=== PATIENT | female | born 1985 | race Caucasian/White ===

== ENCOUNTER 2020-10-07 14:18 | Inpatient (IN) | payer MEDICAID, SELFPAY ==
[2020-10-07 14:19] VITALS: BP 112/69; PULSE 86; RESP 17; TEMP 35.6; O2SAT 100; BMI 19.4
--- NOTE | 2020-10-07 14:36 | ED.VIS.GEN ---
History of Present Illness Chief Complaint: Substance Abuse Informant: Patient Onset: - - She began drinking at the age of 14. Context: - - Not applicable Timing: Continuous Quality: 1 pint to 3 pints of vodka per day Location: Left upper quadrant abdominal pain Current Severity: Mild Maximum Severity: Moderate Worsened by: Alcohol consumption Relieved by: Nothing Associated Symptoms: Nausea and vomiting and black stool Narrative: Patient is a 34-year-old female status post bilateral tubal ligation who presents with left upper quadrant abdominal pain with nausea and vomiting and black stool. The nausea vomiting started a couple days ago. The black stools been present for 1 to 2 days. She denies history of peptic ulcer disease. She denies history of varices. She does have history of pancreatitis. Last bout was 2 to 3 months ago. She states she is never been in detox. She denies fever, chills night sweats. She denies upper respiratory symptoms. She denies exposure to Covid. Denies loss of taste or smell. She denies chest pain, shortness of breath. She does have a cough which she attributes to smoking. She denies dysuria, frequency, urgency or hematuria. She denies bruising easily. There is no history of recent trauma. Prior similar symptoms: Yes - Left upper quadrant bowel pain due to pancreatitis Recent Illness/Hospitalization: No - Past Medical History (1) History of alcoholism Status: Acute (2) History of pancreatitis Status: Acute Past Medical History - Allergies and Home Meds Allergies/Adverse Reactions: Allergies hydrocodone Adverse Reaction (Verified 10/07/20 14:19) Nausea Primary Care Physician: Care Physician,No Primary [Primary Care Provider] - Prior records reviewed: No - No records available at [facility] Surgical History: - - Bilateral tubal ligation Lives: Alone Smoking Status: Current every day smoker Alcohol: Heavy Drugs: None Review of Systems General: Denies: Chills, Fever, Malaise, Subjective, Sweats Eyes: Denies: Visual changes - bilaterally, Blurred Vision - bilaterally, Diplopia ENT: Denies: Rhinorrhea, Sore throat Cardiovascular: Denies: Chest pain, Palpitations Respiratory: Denies: Dyspnea, Cough, Dyspnea on exertion Gastrointestinal: Reports: Abdominal pain, Nausea, Vomiting, Diarrhea, Melena. Denies: Constipation, Hematochezia Genitourinary: Denies: Dysuria, Hematuria, Frequency Musculoskeletal: Denies: Myalgias, Arthralgias, Neck pain, Back pain, Extremity Pain Skin: Denies: Rash, Wounds Neurological: Denies: Headache, Weakness, Numbness Psych: Denies: Depression Endocrine: Denies: Polyuria, Polydipsia Hematologic: Denies: Easy bruising Physical Exam Vital Signs/Narrative: Vital Signs Temp Pulse Resp BP Pulse Ox 10/07/20 14:19 96.0 F L 86 17 112/69 100 Inital Vital Signs reviewed: Yes General: Well nourished, Well developed, No Acute Distress Head: Normocephalic, Atraumatic Eyes: Perrl, EOMI. Negative for: Pale conjunctiva, Scleral icterus ENT: No rhinorrhea, TM's clear Neck: Supple, Nontender, No lymphadenopathy, No JVD Cardiovascular: Regular rate, Regular rhythm, No murmurs, Normal S1, Normal S2 Respiratory: No distress, CTA bilaterally, Chest nontender Abdomen: Soft, Nondistended, No masses, Tender - Upper quadrant, Hypoactive bowel sounds. Negative for: Nontender, Normal bowel sounds, Hepatomegaly, Splenomegaly, Mass, Pulsatile mass, Ventral hernia, Umbilical hernia Rectal: - - No fissures or fistulas noted. There is no obvious hemorrhoids. Stool was brown Back: Nontender, Normal Inspection Extremities: Nontender, No edema Skin: Normal color, No rash, No Trauma. Negative for: Cyanosis, Diaphoresis, Jaundice Neurological: Alert, Oriented x3, Cranial nerves II-XII grossly intact, Normal Strength, Normal Sensation Psychological: Normal affect Diagnostic/Tx/Re-eval 10/07/20 14:30 Stool Stool Occult Blood (CRYSTAL) - Final Laboratory Results 10/07/20 10/07/20 10/07/20 14:45 14:45 14:45 WBC 13.5 H RBC 3.44 L Hgb 12.9 Hct 37.3 MCV 108.4 H MCH 37.5 H MCHC 34.6 RDW Std Deviation 62.0 H RDW Coeff of Jevon 15.6 H Plt Count 319 MPV 11.0 Immature Gran % (Auto) 0.800 Neut % (Auto) 74.7 H Lymph % (Auto) 13.2 L [place] % (Auto) 8.4 Eos % (Auto) 1.6 Baso % (Auto) 1.3 H Absolute Neuts (auto) 10.1 H Absolute Lymphs (auto) 1.78 Nucleated RBC % 0 PT 13.8 INR 1.1 Sodium 139 Potassium 2.6 L* Chloride 98 Carbon Dioxide 33.0 H Anion Gap 8 BUN 4 L Creatinine 0.50 L Estim Creat Clear Calc 121.70 Est GFR (MDRD) Af Amer 182 Est GFR (MDRD) Non-Af 150 BUN/Creatinine Ratio 8.0 L Glucose 90 Calcium 8.4 L Total Bilirubin 1.70 H AST 310 H ALT 92 H Alkaline Phosphatase 504 H Total Protein 7.4 Albumin 2.9 L Globulin 4.5 H Albumin/Globulin Ratio 0.6 L Lipase 112 Ethyl Alcohol 10/07/20 14:45 WBC RBC Hgb Hct MCV MCH MCHC RDW Std Deviation RDW Coeff of Jevon Plt Count MPV Immature Gran % (Auto) Neut % (Auto) Lymph % (Auto) [place] % (Auto) Eos % (Auto) Baso % (Auto) Absolute Neuts (auto) Absolute Lymphs (auto) Nucleated RBC % PT INR Sodium Potassium Chloride Carbon Dioxide Anion Gap BUN Creatinine Estim Creat Clear Calc Est GFR (MDRD) Af Amer Est GFR (MDRD) Non-Af BUN/Creatinine Ratio Glucose Calcium Total Bilirubin AST ALT Alkaline Phosphatase Total Protein Albumin Globulin Albumin/Globulin Ratio Lipase Ethyl Alcohol 191.0 There is no evidence of pancreatitis. Patient does have hypokalemia. She received 40 mEq of potassium p.o. Alcohol is elevated at 191. Total bili is elevated 1.7 and transaminases are elevated suspect due to alcoholism. INR is normal; therefore, her liver function is normal. Patient has macrocytic indices need to evaluate for folate deficiency and B12 deficiency as an inpatient. - Medical Decision Making Work-up was undertaken for medical clearance for detox and because a left upper quadrant abdominal pain black stool rule out pancreatitis and GI bleed. Appropriate blood work has been ordered. ED Disposition - Plan for ED Patient: Disposition: Acute Care Hospital [facility] Diagnosis: Alcohol abuse with intoxication, Hypokalemia, Left upper quadrant abdominal pain Referrals: Care Physician,No Primary [Primary Care Provider] -
--- NOTE | 2020-10-07 15:09 | CM.ED ---
SOCIAL WORK Reason for Consult: Substance Abuse/Patient requesting detox from alcohol Met with patient in room. Introduced role and reason for referral. Patient states was sent in by [facility] and has been battling alcohol addition for many years. Patient reports last drink was 1 hour prior to arrival. Patient states plan to discharge to [facility] after detox. Patient voiced some concerns with not having phone as significant other is in assisted and only is allowed 1 hour of phone time and unsure when significant other will call. Support and education provided. Nurse to review [facility] agreement with patient prior to admission. Plan: Admit to [facility] Judith Guzman, LAWN MOWER SHARPENER, REVIEW TRAINER
[2020-10-07 15:17] LABS: Absolute Lymphocyte Count 1.78 X10^3/uL (0.83-4.51); Absolute Neutrophil Count 10.1 X10^3/uL (2.0-7.7); Basophil# 0.18 X10^3/uL; Basophil% 1.3 % (0-1); Eosinophil# 0.21 X10^3/uL; Eosinophils% 1.6 % (0-5); Hematocrit 37.3 % (37-47); Hemoglobin 12.9 g/dL (12.0-15.0); Lymphocyte # 1.78 X10^3/ul (4.0); Lymphocyte % 13.2 % (19-41); Mean Corp Hgb Conc 34.6 g/dL (32-36); Mean Corpuscular Hgb 37.5 pg (27.0-32.0); Mean Corpuscular Volume 108.4 fL (81-99); Monocyte# 1.13 X10^3/uL; Monocyte% 8.4 % (0-10); NRBC Flagged by Analyzer 0 % (0-5); Neutrophil # 10.05 X10^3/uL (2.7-7.7); Neutrophil % 74.7 % (47-70); Platelet Count 319 K/mm3 (150-450); RBC Distribution Width CV 15.6 % (11.6-14.6); Red Blood Count 3.44 M/mm3 (4.2-5.4); White Blood Count 13.5 K/mm3 (4.4-11.0)
[2020-10-07 15:24] LABS: International Normalized Ratio 1.1; Prothrombin Time (Protime)PT. 13.8 SECONDS (11.7-14.9)
[2020-10-07 15:32] LABS: ALB/GLOB Ratio 0.6 RATIO (0.9-2.4); AST(SGOT) 310 U/L (15-37); Alanine Aminotransfer ALT/SGPT 92 U/L (13-56); Albumin, Serum 2.9 g/dL (3.2-5.0); Alkaline Phosphatase 504 U/L (45-117); Anion Gap 8 (5-15); BUN 4 mg/dL (7-18); Calcium,Total 8.4 mg/dL (8.5-10.1); Chloride 98 mmol/L (98-107); EST Glomerular Filtration Rate 150 mL/min (>60); Est Glom Filt Rate - Afr Amer 182 mL/min (>60); Globulin 4.5 g/dL (2.2-4.2); Glucose 90 mg/dL (74-106); Lipase 112 U/L (73-393); Potassium 2.6 mmol/L (3.5-5.1); Protein, Total 7.4 g/dL (6.4-8.2); Sodium Level 139 mmol/L (136-145)
--- NOTE | 2020-10-07 16:26 | NURSING ---
DR WEISS FOR DR CRAMER
--- NOTE | 2020-10-07 16:48 | PCM.HP.STD ---
<Hank Coronel - Last Filed: 10/07/20 16:48> Problem List (1) Alcohol withdrawal Status: Acute (2) Chronic pancreatitis Status: Chronic (3) Nicotine abuse Status: Chronic (4) Hepatitis Status: Chronic (5) History of alcoholism Status: Chronic History of Present Illness Date of Admission: 10/07/20 Chief Complaint: alcohol withdrawal The patient is a 34 year old F with pmhx of alcoholism, chronic pancreatitis,seizure, nicotine abuse, hx hepatitis unclear subtype, who presented to the ER with c/o alcohol withdrawal requesting assistance with withdrawal. She has been drinking for approximately 20 years and states she has never been through detox. She states she has been admitted for pancreatitis at [facility] multiple times but has never been detoxed while there. She states she has had seizures, most recently 6 months prior, and she does not take any seizure medications. She drinks approximately 1-3 pints of 80 proof vodka every day. She smokes 3 hits of marijuana daily - she states this is done to help her appetite and pancreatitis. She smokes cigarettes 1/2 ppd. She denies other drug use. She currently complains of tremor. She has mild upper abdominal discomfort. She last drank 1-2 hours prior to arrival. She was also noted to have had black stools recently however no anemia and hemoccult stool is negative. 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 Lives: Alone Smoking Status: Current every day smoker Tobacco Use: Cigarettes Alcohol: Heavy Drugs: Marijuana - *Family History Maternal History Items: - - denies stroke, diabetes, heart disease, cancer Paternal History Items: - - denies stroke, diabetes, heart disease, cancer Review of Systems Constitutional: Denies: Chills, Fever, Weight Change HEENT: Denies: Head Aches, Sinus Congestion, Sinus Drainage Cardiovascular: Denies: Chest Pain, Palpitations Respiratory: Denies: Cough, Shortness of breath at rest, Sputum production Gastrointestinal: Denies: Abdominal Pain, Nausea, Vomiting Genitourinary: Denies: Dysuria Musculoskeletal: Denies: Joint Pain, Joint Tenderness Skin: Denies: Rash, Wounds Neurological: Reports: Tremor. Denies: Focal weakness, Numbness, Tingling Psychiatric: Denies: Anxiety, Depression, Homicidal Ideations, Suicidal Ideations Hematologic/ Lymphatic: Denies: Easy Bruising, Easy Bleeding VTE Information - Inpt Only VTE Present on Admission: No VTE Mechan Device Prophylaxis: None VTE Pharm Prophylaxis ordered?: No Reason prophylaxis not ordered:: Procedure Not Indicated Patient Problems: Active and Suspected Problems History of pancreatitis (Acute) Hypokalemia (Acute) Left upper quadrant abdominal pain (Acute) Alcohol withdrawal (Acute) - Physical Exam Vitals/I&O's: Vital Signs Temp Pulse Resp BP Pulse Ox 96.0 F L 86 17 112/69 100 10/07/20 14:19 10/07/20 14:19 10/07/20 14:19 10/07/20 14:19 10/07/20 14:19 Oxygen Delivery Method Room Air Weight: 106 lb 3.2 oz Body Mass Index (BMI) 19.4 General: Alert, Oriented x3, Cooperative HEENT: Atraumatic, PERRLA, EOMI, Normocephalic Neck: Supple, No JVD, Negative Carotid Bruits Lungs: Clear to auscultation, Normal air movement Cardiovascular: Regular rate, No murmurs Abdomen: Bowel Sounds Present, Soft, Non Tender Extremities: No edema, Capillary Refill Less than 3 Seconds Skin: No rashes, No breakdown Musculoskeletal: No Tenderness to Palpation of Joints or Extremities Neurological: Cranial nerves II-XII grossly intact, - - no asterixis, mild fine upper ext tremor BL Psych/Mental Status: Normal Affect, Appropriate Microbiology Past 72 Hours 10/07/20 14:30 Stool Stool Occult Blood (CRYSTAL) - Final Laboratory Results 10/07/20 14:45: WBC 13.5 H, RBC 3.44 L, Hgb 12.9, Hct 37.3, MCV 108.4 H, MCH 37.5 H, MCHC 34.6, RDW Std Deviation 62.0 H, RDW Coeff of Jevon 15.6 H, Plt Count 319, MPV 11.0, Immature Gran % (Auto) 0.800, Neut % (Auto) 74.7 H, Lymph % (Auto) 13.2 L, [place] % (Auto) 8.4, Eos % (Auto) 1.6, Baso % (Auto) 1.3 H, Absolute Neuts (auto) 10.1 H, Absolute Lymphs (auto) 1.78, Nucleated RBC % 0 10/07/20 14:45: PT 13.8, INR 1.1 10/07/20 14:45: Sodium 139, Potassium 2.6 L*, Chloride 98, Carbon Dioxide 33.0 H, Anion Gap 8, BUN 4 L, Creatinine 0.50 L, Estim Creat Clear Calc 121.70, Est GFR (MDRD) Af Amer 182, Est GFR (MDRD) Non-Af 150, BUN/Creatinine Ratio 8.0 L, Glucose 90, Calcium 8.4 L, Total Bilirubin 1.70 H, AST 310 H, ALT 92 H, Alkaline Phosphatase 504 H, Total Protein 7.4, Albumin 2.9 L, Globulin 4.5 H, Albumin/Globulin Ratio 0.6 L, Lipase 112 10/07/20 14:45: Ethyl Alcohol 191.0 Assessment/Plan All Active Problems History of pancreatitis (Acute) Hypokalemia (Acute) Left upper quadrant abdominal pain (Acute) Alcohol withdrawal (Acute) 1. Alcoholism with acute withdrawal - heavy drinking hx. hx withdrawal seizures. initiate phenobarbital taper + Ativan PRN. Hypokalemic, replete, check mag / phos. start folate/thiamine/multivitamin. EtOH level is 191. -heavy drinker, 1-3 pints 80 proof vodka daily -pt denies ever going through detox 2. Abnormal LFTs - hx unclear hepatitis - repeat CMP in AM. suspect alcoholic. Repeat in AM. Pt needs referral to GI 3. Chronic pancreatitis - mild upper abdominal discomfort. Pt needs referral to GI. Lipase is negative. 4. Nicotine abuse - 1/2 ppd smoker. Patch, 5. Marijuana abuse - 1-3 hits daily. unclear quantity. 6. Pt reported black stools - Hgb is normal and stool occult is negative. DVT ppx: early ambulation DC planning: pt connected to [facility] program. This patient was seen by Hank Coronel PA-C under the supervision of Dr. Bustillo. <Ayde Bustillo - Last Filed: 10/07/20 17:43> History of Present Illness The patient is a 34 year old F [] Past Medical History Allergies hydrocodone Adverse Reaction (Verified 10/07/20 14:19) Nausea - Physical Exam Vitals/I&O's: Vital Signs Temp Pulse Resp BP Pulse Ox 96.0 F L 86 16 112/69 100 10/07/20 14:19 10/07/20 14:19 10/07/20 16:50 10/07/20 14:19 10/07/20 14:19 Oxygen Delivery Method Room Air Weight: 48.172 kg Body Mass Index (BMI) 19.4 Microbiology Past 72 Hours 10/07/20 14:30 Stool Stool Occult Blood (CRYSTAL) - Final Laboratory Results 10/07/20 14:45: WBC 13.5 H, RBC 3.44 L, Hgb 12.9, Hct 37.3, MCV 108.4 H, MCH 37.5 H, MCHC 34.6, RDW Std Deviation 62.0 H, RDW Coeff of Jevon 15.6 H, Plt Count 319, MPV 11.0, Immature Gran % (Auto) 0.800, Neut % (Auto) 74.7 H, Lymph % (Auto) 13.2 L, [place] % (Auto) 8.4, Eos % (Auto) 1.6, Baso % (Auto) 1.3 H, Absolute Neuts (auto) 10.1 H, Absolute Lymphs (auto) 1.78, Nucleated RBC % 0 10/07/20 14:45: PT 13.8, INR 1.1 10/07/20 14:45: Sodium 139, Potassium 2.6 L*, Chloride 98, Carbon Dioxide 33.0 H, Anion Gap 8, BUN 4 L, Creatinine 0.50 L, Estim Creat Clear Calc 121.70, Est GFR (MDRD) Af Amer 182, Est GFR (MDRD) Non-Af 150, BUN/Creatinine Ratio 8.0 L, Glucose 90, Calcium 8.4 L, Total Bilirubin 1.70 H, AST 310 H, ALT 92 H, Alkaline Phosphatase 504 H, Total Protein 7.4, Albumin 2.9 L, Globulin 4.5 H, Albumin/Globulin Ratio 0.6 L, Lipase 112 10/07/20 14:45: Ethyl Alcohol 191.0 10/07/20 17:00: Urine Opiates Screen Pending, Urine Methadone Screen Pending, Ur Barbiturates Screen Pending, Ur Phencyclidine Scrn Pending, Ur Amphetamines Screen Pending, U Methamphetamin-MDMA Pending, U Benzodiazepines Scrn Pending, Urine Cocaine Screen Pending, U Cannabinoids Screen Pending, Ur Drug Screen Comment Assessment/Plan This patient was seen in conjunction with CARYL Albarran. I have independently interviewed and examined the patient and reviewed pertinent historical, laboratory, and other data. Please refer to CARYL Albarran note for his patient's presentation, findings, and recommendations. I have reviewed and his note and concur with his documentation 34-year-old with past medical history of chronic alcoholism, seizure disorder, unknown etiology, not on medication, chronic pancreatitis, nicotine dependence who comes in requesting for medical stabilization for alcohol withdrawal. Patient lanes of feeling hot and cold, he has some tremors but denies any nausea vomiting. She drinks 1 to 3 pints of vodka every day, last had a drink about an hour prior to coming to the hospital. She also uses marijuana. She also complains of abdominal discomfort, mostly in the epigastric region and believes is related to her chronic pancreatitis. Denied any fever or chills or any sick contact Vitals in the ED was stable. Her admitting blood work showed RBC count of 13.5, hemoglobin 12.9, platelet count 319, INR 1.1, sodium 139, potassium 2.6, chloride 98, bicarbonate 33, BUN 4, creatinine 0.50, AST 13, ALT 92, ALP 504, WBC 1.70. No previous LFTs to compare. Urine tox was pending. Serum alcohol level was 191 Physical Exam: Gen: Looks in some discomfort, not pale, not jaundiced, tattoos all over upper extremities CVS:HS I +II, regular, no murmurs RESP: CTA GI: BS present and normal, soft, nontender, no palpable organs EXT:No edema ASSESSMENT: 1. Acute alcohol withdrawal 2. Hypokalemia 3. Elevated liver function tests likely secondary to alcohol liver disease, Jewel discriminant function is 11 4. Nicotine dependence 5. Polysubstance use Plan: Check magnesium level Continue on phenobarb withdrawal protocol Nicotine replacement Check hepatitis profile Repeat blood work in am Inpatient E&M: [id number] Init Hosp L3
[2020-10-07 16:50] VITALS: RESP 16
--- NOTE | 2020-10-07 16:54 | NURSING ---
MED SURG ACUTE ALCOHOL WITHDRAWAL PAINTSIL
--- NOTE | 2020-10-07 17:45 | CM.ED ---
SOCIAL WORK Call to [facility] Treatment Navigator, Wilbert to update on patient's admission to [facility]. Wilbert reports will be in tomorrow to complete assessment. Judith Guzman, ROLLER SETTER, EDUCATION PROFESSIONAL
[2020-10-07 17:46] VITALS: BP 112/69; PULSE 86; RESP 17; TEMP 35.6; O2SAT 100
[2020-10-07 18:00] LABS: Amphetamine Urine VISTA NEGATIVE (<1000 ng/mL); Barbiturate Urine VISTA NEGATIVE (< 200 ng/mL); Benzodiazepine Urine VISTA NEGATIVE (< 200 ng/mL); Cocaine Urine VISTA NEGATIVE (< 300 ng/mL); Ecstacy Urine VISTA NEGATIVE (< 500 ng/mL); Methadone Urine VISTA NEGATIVE (< 300 ng/mL); PCP Urine VISTA NEGATIVE (< 25 ng/mL); THC Urine VISTA POSITIVE (< 50 ng/mL); Vista UDS pH Range 6
[2020-10-07 18:24] VITALS: BMI 18.7
--- NOTE | 2020-10-07 18:39 | US_ITS ---
HISTORY: ELEVATED LIVER ENZYMES TECHNIQUE: Ortega scale and color doppler imaging was performed of the pancreas, liver, and gallbladder. COMPARISON: None FINDINGS: # of images incl. paperwork: 132 The liver is coarse in echotexture borderline-enlarged just under 18 cm suggestive of hepatic steatosis and hepatomegaly No gallstones, gallbladder wall thickening or biliary dilatation. Gallbladder wall measures 3 mm. Common bile duct measures 4 mm. No tenderness upon insonation the gallbladder. Within the pancreatic head there is an area that is slightly echogenic measuring 5 x 7 x 9 mm. Although it is echogenic it is similar to that of fat, and does not demonstrate shadowing. . Right kidney is normal in size and appearance. Visualized abdominal aorta has normal caliber. IVC is patent. Hepatopedal flow is present within the central portal vein. US/Abdomen Limited IMPRESSION: 5 x 7 x 9 mm echogenic non-shadowing focus within the head of the pancreas. I believe this likely represents fat been volume averaged with regular, normal pancreatic parenchyma. Possibility of an echogenic nodule within the pancreatic head is within the differential. Recommend comparison to any previous cross-sectional imaging. If no previous imaging consider multiphase CT versus MRI of the pancreas for further evaluation. Hepatic steatosis and borderline hepatomegaly.. at 0037 Reported and signed by: Min Watts MD Electronically Signed: Min Watts MD at 0:36 EST Tel , Service support ,
[2020-10-07] MEDS: 0.9% Normal Saline 1,000 ML 75 ML IV (18:48)
[2020-10-07] MEDS: Famotidine 20 MG Tablet PO (18:52)
[2020-10-07] MEDS: Phenobarbital 32.4 MG Tablet 64.8 MG PO ×2 (18:52→22:57)
[2020-10-07] MEDS: LORazepam 1 MG Tablet 2 MG PO (18:52)
[2020-10-07] MEDS: Ondansetron 8 MG Tablet PO (18:53)
[2020-10-07 18:54] LABS: Magnesium 1.6 mg/dL (1.6-2.6)
[2020-10-07 20:00] VITALS: BP 113/79; PULSE 92; RESP 18; TEMP 37.2; O2SAT 100
[2020-10-07 20:31] VITALS: RESP 18; O2SAT 98
[2020-10-07 20:56] LABS: Bilirubin, Direct 1.37 mg/dL (0.00-0.30)
[2020-10-07 22:55] VITALS: BP 107/71; PULSE 90; RESP 16; TEMP 37.2; O2SAT 99
[2020-10-07] MEDS: traZODone 100 MG Tablet PO (22:57)
[2020-10-08] VITALS (8 sets, daily range): BP systolic 95–126; BP diastolic 55–87; PULSE 76–106; RESP 14–18; TEMP 36.7–37.1; O2SAT 95–99; BMI 18.7
[2020-10-08 06:42] LABS: Absolute Lymphocyte Count 1.81 X10^3/uL (0.83-4.51); Absolute Neutrophil Count 6.3 X10^3/uL (2.0-7.7); Basophil% 1.1 % (0-1); Eosinophil# 0.29 X10^3/uL; Eosinophils% 3.1 % (0-5); Hematocrit 30.5 % (37-47); Hemoglobin 10.3 g/dL (12.0-15.0); Lymphocyte # 1.81 X10^3/ul (4.0); Lymphocyte % 19.4 % (19-41); Mean Corp Hgb Conc 33.8 g/dL (32-36); Mean Corpuscular Hgb 37.5 pg (27.0-32.0); Mean Corpuscular Volume 110.9 fL (81-99); Mean Platelet Vol. 10.9 fl (6.2-12.0); Monocyte# 0.74 X10^3/uL; Monocyte% 7.9 % (0-10); NRBC Flagged by Analyzer 0 % (0-5); Neutrophil # 6.34 X10^3/uL (2.7-7.7); Neutrophil % 67.8 % (47-70); Platelet Count 252 K/mm3 (150-450); RBC Distribution Width CV 15.9 % (11.6-14.6); RBC Distribution Width SD 64.6 fl (35.1-43.9); Red Blood Count 2.75 M/mm3 (4.2-5.4); White Blood Count 9.4 K/mm3 (4.4-11.0)
[2020-10-08 07:09] LABS: ALB/GLOB Ratio 0.6 RATIO (0.9-2.4); AST(SGOT) 218 U/L (15-37); Alanine Aminotransfer ALT/SGPT 64 U/L (13-56); Albumin, Serum 2.1 g/dL (3.2-5.0); Alkaline Phosphatase 376 U/L (45-117); Anion Gap 6 (5-15); BUN 4 mg/dL (7-18); BUN/Creat Ratio 7.8 RATIO (10-20); Calcium,Total 7.3 mg/dL (8.5-10.1); Chloride 105 mmol/L (98-107); Creatinine, Serum 0.51 mg/dL (0.55-1.02); EST Glomerular Filtration Rate 146 mL/min (>60); Est Glom Filt Rate - Afr Amer 177 mL/min (>60); Estimated Creatinine Clearance 114.93 ml/min; Globulin 3.4 g/dL (2.2-4.2); Glucose 104 mg/dL (74-106); Potassium 3.7 mmol/L (3.5-5.1); Protein, Total 5.5 g/dL (6.4-8.2); Sodium Level 142 mmol/L (136-145)
[2020-10-08] MEDS: Dicyclomine 10 MG Capsule 20 MG PO (08:42)
[2020-10-08] MEDS: LORazepam 1 MG Tablet 2 MG PO ×3 (08:42→18:39)
[2020-10-08] MEDS: Phenobarbital 32.4 MG Tablet 64.8 MG PO ×4 (08:42→22:31)
[2020-10-08] MEDS: Thiamine Hydrochloride 100 MG Tablet PO (08:43)
[2020-10-08] MEDS: Magnesium Chloride 64 MG Delay Rel.Tablet 128 MG PO (08:43)
[2020-10-08] MEDS: Folic Acid 1 MG Tablet PO (08:43)
[2020-10-08] MEDS: Famotidine 20 MG Tablet PO ×2 (08:43→20:40)
[2020-10-08 08:50] LABS: Phosphorus 2.8 mg/dL (2.5-4.9)
--- NOTE | 2020-10-08 09:09 | PCM.NTREPORT ---
Nutrition Therapy Report - History Nutrition Services has been consulted to:: Manage nutrient details of diet order Current diet / nutrition support order:: Regular - Anthropometric Measurements Height:: 5 ft 2 in Weight:: 46.4 kg Body Mass Index (BMI):: 18.7 - Relevant Labs Relevant Labs:: WBC 13.5 K/mm3 (4.4-11.0) H 10/07/20 14:45 RBC 2.75 M/mm3 (4.2-5.4) L 10/08/20 06:05 Hgb 10.3 g/dL (12.0-15.0) L 10/08/20 06:05 Hct 30.5 % (37-47) L 10/08/20 06:05 MCV 110.9 fL (81-99) H 10/08/20 06:05 MCH 37.5 pg (27.0-32.0) H 10/08/20 06:05 RDW Std Deviation 64.6 fl (35.1-43.9) H 10/08/20 06:05 RDW Coeff of Jevon 15.9 % (11.6-14.6) H 10/08/20 06:05 Neut % (Auto) 74.7 % (47-70) H 10/07/20 14:45 Lymph % (Auto) 13.2 % (19-41) L 10/07/20 14:45 Baso % (Auto) 1.1 % (0-1) H 10/08/20 06:05 Absolute Neuts (auto) 10.1 X10^3/uL (2.0-7.7) H 10/07/20 14:45 Potassium 2.6 mmol/L (3.5-5.1) L* 10/07/20 14:45 Carbon Dioxide 33.0 mmol/L (21.0-32.0) H 10/07/20 14:45 BUN 4 mg/dL (7-18) L 10/08/20 06:05 Creatinine 0.51 mg/dL (0.55-1.02) L 10/08/20 06:05 BUN/Creatinine Ratio 7.8 RATIO (10-20) L 10/08/20 06:05 Calcium 7.3 mg/dL (8.5-10.1) L 10/08/20 06:05 Total Bilirubin 1.50 mg/dL (0.20-1.00) H 10/08/20 06:05 Direct Bilirubin 1.37 mg/dL (0.00-0.30) H 10/07/20 14:45 AST 218 U/L (15-37) H 10/08/20 06:05 ALT 64 U/L (13-56) H 10/08/20 06:05 Alkaline Phosphatase 376 U/L (45-117) H 10/08/20 06:05 Total Protein 5.5 g/dL (6.4-8.2) L 10/08/20 06:05 Albumin 2.1 g/dL (3.2-5.0) L 10/08/20 06:05 Globulin 4.5 g/dL (2.2-4.2) H 10/07/20 14:45 Albumin/Globulin Ratio 0.6 RATIO (0.9-2.4) L 10/08/20 06:05 - Assessment Food / Nutrition-Related History:: 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 States N/V daily RT ETOH consumption. States wt loss w/ wt June 2020 120#- CBW 102.3#- wt loss 17.7#/15% x 3 months significant for malnutrition. Upon visual observation no s/s of muscle/fat wasting. Pt b-fast tray not delivered at this time- RDN spoke w/ [facility] Patti, re-ordered pt tray. - Nutrition Diagnosis Problem / Etiology / Signs & Symptoms (PES):: Severe malnutrition in the context of social/behavioral/environmental circumstances RT inadequate oral intake and excessive alcohol consumption AEB </=50% energy intake compared to estimated energy needs >/=1 month, pt reports consuming 1-3 pints 80 proof ETOH daily, severe wt loss 17.7#/15% x 3 months. Evidence of Malnutrition Exists:: Yes Severe PCM:: Social & Environmental circumstances - Nutrition Intervention Nutrition Prescription:: 8916-4228 calories, 45-55 grams protein - Food / Nutrient Delivery Interventions Nutrition support ordered as / adjusted to:: Continue Regular diet. Will provide Ensure enlive 120 ml & ensure pudding/magic cup with meals for increased brooke/pro if consumed. Nutrition education provided?: No - MNT Monitoring Further MNT monitoring and evaluation required?: Yes MNT Follow-up in:: 3-5 days
--- NOTE | 2020-10-08 10:35 | PN_ITS ---
<Hank Coronel - Last Filed: 10/08/20 10:35> Patient Problems: Active and Suspected Problems History of pancreatitis (Acute) Hypokalemia (Acute) Left upper quadrant abdominal pain (Acute) Alcohol withdrawal (Acute) Reason for Visit: alcohol withdrawal Subjective: pt states i feel like shit. When asked to elaborate on what is bothering her today she describes musculoskeletal pain all over her body in the upper/lower extremities and back, and that she is very tired. She notes that her BL upper extremity tremor has improved. She has no nausea/vomiting or diarrhea. She has no abdominal pain yet today. No fever/chills. No cough/sob. Vitals/I&O's: Vital Signs Temp Pulse Resp BP Pulse Ox 98.1 F 79 14 95/59 L 95 10/08/20 08:30 10/08/20 08:30 10/08/20 08:30 10/08/20 08:30 10/08/20 08:30 Oxygen Delivery Method Room Air Weight: 102 lb 4.712 oz Body Mass Index (BMI) 18.7 Intake and Output for Last 24 Hours 10/06/20 10/07/20 10/08/20 23:59 23:59 23:59 Intake Total 500 / 500 1000 / 1000 Output Total 100 / 100 200 / 200 Balance 400 / 400 800 / 800 General: Alert, Oriented x3, Cooperative HEENT: Atraumatic, PERRLA, EOMI, Normocephalic Neck: Supple, No JVD, Negative Carotid Bruits Lungs: Clear to auscultation, Normal air movement Cardiovascular: Regular rate, No murmurs Abdomen: Bowel Sounds Present, Soft, Non Tender Extremities: No edema, Capillary Refill Less than 3 Seconds Skin: No rashes, No breakdown Musculoskeletal: No Tenderness to Palpation of Joints or Extremities Neurological: Cranial nerves II-XII grossly intact, - - no tremor appreciated at this time. Psych/Mental Status: Normal Affect, Appropriate, Alert and oriented to time, place, person, mood and affect Microbiology Past 72 Hours 10/07/20 14:30 Stool Stool Occult Blood (CRYSTAL) - Final Laboratory Results 10/07/20 14:45: WBC 13.5 H, RBC 3.44 L, Hgb 12.9, Hct 37.3, MCV 108.4 H, MCH 37.5 H, MCHC 34.6, RDW Std Deviation 62.0 H, RDW Coeff of Jevon 15.6 H, Plt Count 319, MPV 11.0, Immature Gran % (Auto) 0.800, Neut % (Auto) 74.7 H, Lymph % (Auto) 13.2 L, [place] % (Auto) 8.4, Eos % (Auto) 1.6, Baso % (Auto) 1.3 H, Absol lindsey Neuts (auto) 10.1 H, Absolute Lymphs (auto) 1.78, Nucleated RBC % 0 10/07/20 14:45: PT 13.8, INR 1.1 10/07/20 14:45: Sodium 139, Potassium 2.6 L*, Chloride 98, Carbon Dioxide 33.0 H , Anion Gap 8, BUN 4 L, Creatinine 0.50 L, Estim Creat Clear Calc 121.70, Est GFR (MDRD) Af Amer 182, Est GFR (MDRD) Non-Af 150, BUN/Creatinine Ratio 8.0 L, Glucose 90, Calcium 8.4 L, Total Bilirubin 1.70 H, AST 310 H, ALT 92 H, Alkaline Phosphatase 504 H, Total Protein 7.4, Albumin 2.9 L, Globulin 4.5 H, Albumin/Globulin Ratio 0.6 L, Lipase 112 10/07/20 14:45: Ethyl Alcohol 191.0 10/07/20 14:45: Magnesium 1.6 10/07/20 14:45: Direct Bilirubin 1.37 H 10/07/20 17:00: Urine Opiates Screen NEGATIVE, Urine Methadone Screen NEGATIVE, Ur Barbiturates Screen NEGATIVE, Ur Phencyclidine Scrn NEGATIVE, Ur Amphetamines Screen NEGATIVE, U Methamphetamin-MDMA NEGATIVE, U Benzodiazepines Scrn NEGATIVE, Urine Cocaine Screen NEGATIVE, U Cannabinoids Screen POSITIVE H, Ur Drug Screen Comment 10/08/20 06:05: WBC 9.4, RBC 2.75 L, Hgb 10.3 L, Hct 30.5 L, MCV 110.9 H, MCH 37.5 H, MCHC 33.8, RDW Std Deviation 64.6 H, RDW Coeff of Ejvon 15.9 H, Plt Count 252, MPV 10.9, Immature Gran % (Auto) 0.700, Neut % (Auto) 67.8, Lymph % (Auto) 19.4, [place] % (Auto) 7.9, Eos % (Auto) 3.1, Baso % (Auto) 1.1 H, Absolute Neuts (auto) 6.3, Absolute Lymphs (auto) 1.81, Nucleated RBC % 0 10/08/20 06:05: Sodium 142, Potassium 3.7, Chloride 105, Carbon Dioxide 31.0, Anion Gap 6, BUN 4 L, Creatinine 0.51 L, Estim Creat Clear Calc 114.93, Est GFR (MDRD) Af Amer 177, Est GFR (MDRD) Non-Af 146, BUN/Creatinine Ratio 7.8 L, Glucose 104, Calcium 7.3 L, Total Bilirubin 1.50 H, AST 218 H, ALT 64 H, Alkaline Phosphatase 376 H, Total Protein 5.5 L, Albumin 2.1 L, Globulin 3.4, Albumin/Globulin Ratio 0.6 L 10/08/20 06:05: Phosphorus 2.8 Current Medications Albuterol Sulfate (Albuterol 2.5 Mg/3 Ml Vial.Neb.) 2.5 mg INHALATION Q2H PRN PRN PRN Reason: Shortness of Breath/Wheezing Dicyclomine HCl (Dicyclomine 10 Mg Capsule) 20 mg PO Q6H PRN PRN PRN Reason: abdominal discomfort Last Admin: 10/08/20 08:42 Dose: 20 mg Documented by: Famotidine (Famotidine 20 Mg Tablet) 20 mg PO BID [facility] Last Admin: 10/08/20 08:43 Dose: 20 mg Documented by: Folic Acid (Folic Acid 1 Mg Tablet) 1 mg PO DAILY@0800 [facility] Last Admin: 10/08/20 08:43 Dose: 1 mg Documented by: Gabapentin (Gabapentin 300 Mg Capsule) 300 mg PO Q8H PRN PRN PRN Reason: moderate to severe anxiety Hydroxyzine Pamoate (Hydroxyzine Radha 25 Mg Capsule) 50 mg PO Q4H PRN PRN PRN Reason: mild anxiety Loperamide HCl (Loperamide 2 Mg Capsule) 2 mg PO Q4H PRN PRN PRN Reason: LOOSE STOOLS Lorazepam (Lorazepam 2 Mg/Ml Syringe) 2 mg IV Q2H PRN PRN; Protocol PRN Reason: CIWA score > 8 but <15 Lorazepam (Lorazepam 2 Mg/Ml Syringe) 2 mg IV UD PRN; Protocol PRN Reason: CIWA score >/=15. Lorazepam (Lorazepam 1 Mg Tablet) 2 mg PO Q2H PRN PRN; Protocol PRN Reason: CIWA score > 8 but <15 Last Admin: 10/08/20 08:42 Dose: 2 mg Documented by: Lorazepam (Lorazepam 1 Mg Tablet) 2 mg PO UD PRN; Protocol PRN Reason: CIWA score >/=15. Nicotine (Nicotine 14 Mg Patch) 14 mg TD DAILY [facility] Last Admin: 10/08/20 08:43 Dose: Not Given Documented by: Nicotine Polacrilex (Nicotine Polacrilex 4 Mg Gum) 4 mg PO Q2H PRN PRN PRN Reason: Nicotine Craving Last Admin: 10/08/20 08:43 Dose: 4 mg Documented by: Ondansetron HCl (Ondansetron 8 Mg Tablet) 8 mg PO Q8H PRN PRN PRN Reason: NAUSEA Last Admin: 10/07/20 18:53 Dose: 8 mg Documented by: Phenobarbital (Phenobarbital 32.4 Mg Tablet) 97.2 mg PO Q4H [facility]; Taper Stop: 10/12/20 02:59 Last Admin: 10/08/20 08:42 Dose: 97.2 mg Documented by: Prochlorperazine Edisylate (Prochlorperazine 10 Mg/2 Ml Vial) 5 mg IV Q4H PRN PRN PRN Reason: Breakthrough nausea/vomiting Sodium Chloride (0.9% Saline Lock 10 Ml Syringe) 10 - 40 ml IV UD PRN PRN Reason: SALINE FLUSH Thiamine HCl (Thiamine Hydrochloride 100 Mg Tablet) 100 mg PO DAILYCM [facility] Last Admin: 10/08/20 08:43 Dose: 100 mg Documented by: Trazodone HCl (Trazodone 100 Mg Tablet) 100 mg PO QHS PRN PRN Reason: INSOMNIA Last Admin: 10/07/20 22:57 Dose: 100 mg Documented by: STROKE Vital Signs/Narrative: Vital Signs Temp Pulse Resp BP Pulse Ox 10/08/20 08:30 98.1 F 79 14 95/59 L 95 10/08/20 08:28 98.1 F 79 14 95/59 L 95 Medical Necessity - Tobacco Use Smoking Status: Current every day smoker Tobacco Use: Cigarettes Assessment/Plan All Active Problems History of pancreatitis (Acute) Hypokalemia (Acute) Left upper quadrant abdominal pain (Acute) Alcohol withdrawal (Acute) 1. Alcoholism with acute withdrawal - hx withdrawal seizures. continue phenobarbital taper + Ativan PRN. Hypokalemic, replete, supplement mag, phos normal. continue folate/thiamine/multivitamin. EtOH level was 191 at presentat ion. -heavy drinker, 1-3 pints 80 proof vodka daily -pt denies ever going through detox 2. Abnormal LFTs - hx unclear hepatitis - repeat CMP in AM. suspect alcoholic. Repeat LFTs show improvement. Pt needs referral to GI as an outpatient. -abdominal US shows focus within head of the pancreas - see radiologist report, normal pancreatic parenchyma, possibly echogenic nodule in the pancreatic head. Also hepatic steatosis and borderline hepatomegaly. -this will likely need further workup possibly including CT or MRI, which may be obtained on an outpatient basis after the patient has adequately completed treatment for acute alcohol withdrawal 3. Chronic pancreatitis - no abd pain today. mulitple prior admissions to [facility] for acute on chronic pancreatitis.Lipase is negative. -otherwise, as per #2. 4. Nicotine abuse - 1/2 ppd smoker. Patch 5. Marijuana abuse - 1-3 hits daily. unclear quantity. C/w tox screen. 6. Pt reported black stools - initial hgb normal and Hemoccult neg. Mild decline in Hgb today, check H/H in AM to trend. DVT ppx: early ambulation DC planning: pt connected to 180 program. This patient was seen by Hank Coroenl PA-C under the supervision of Dr. Escobedo <Chalino Escobedo F - Last Filed: 10/08/20 12:08> Vitals/I&O's: Vital Signs Temp Pulse Resp BP Pulse Ox 98.1 F 79 14 95/59 L 95 10/08/20 08:30 10/08/20 08:30 10/08/20 08:30 10/08/20 08:30 10/08/20 08:30 Oxygen Delivery Method Room Air Weight: 102 lb 4.712 oz Body Mass Index (BMI) 18.7 Intake and Output for Last 24 Hours 10/06/20 10/07/20 10/08/20 23:59 23:59 23:59 Intake Total 500 / 500 1000 / 1000 Output Total 100 / 100 200 / 200 Balance 400 / 400 800 / 800 Microbiology Past 72 Hours 10/07/20 14:30 Stool Stool Occult Blood (CRYSTAL) - Final Laboratory Results 10/07/20 14:45: WBC 13.5 H, RBC 3.44 L, Hgb 12.9, Hct 37.3, MCV 108.4 H, MCH 37.5 H, MCHC 34.6, RDW Std Deviation 62.0 H, RDW Coeff of Jevon 15.6 H, Plt Count 319, MPV 11.0, Immature Gran % (Auto) 0.800, Neut % (Auto) 74.7 H, Lymph % (Auto) 13.2 L, [place] % (Auto) 8.4, Eos % (Auto) 1.6, Baso % (Auto) 1.3 H, Absolute Neuts (auto) 10.1 H, Absolute Lymphs (auto) 1.78, Nucleated RBC % 0 10/07/20 14:45: PT 13.8, INR 1.1 10/07/20 14:45: Sodium 139, Potassium 2.6 L*, Chloride 98, Carbon Dioxide 33.0 H , Anion Gap 8, BUN 4 L, Creatinine 0.50 L, Estim Creat Clear Calc 121.70, Est GFR (MDRD) Af Amer 182, Est GFR (MDRD) Non-Af 150, BUN/Creatinine Ratio 8.0 L, Glucose 90, Calcium 8.4 L, Total Bilirubin 1.70 H, AST 310 H, ALT 92 H, Alkaline Phosphatase 504 H, Total Protein 7.4, Albumin 2.9 L, Globulin 4.5 H, Albumin/Globulin Ratio 0.6 L, Lipase 112 10/07/20 14:45: Ethyl Alcohol 191.0 10/07/20 14:45: Magnesium 1.6 10/07/20 14:45: Direct Bilirubin 1.37 H 10/07/20 17:00: Urine Opiates Screen NEGATIVE, Urine Methadone Screen NEGATIVE, Ur Barbiturates Screen NEGATIVE, Ur Phencyclidine Scrn NEGATIVE, Ur Amphetamines Screen NEGATIVE, U Methamphetamin-MDMA NEGATIVE, U Benzodiazepines Scrn NEGATIVE, Urine Cocaine Screen NEGATIVE, U Cannabinoids Screen POSITIVE H, Ur Drug Screen Comment 10/08/20 06:05: WBC 9.4, RBC 2.75 L, Hgb 10.3 L, Hct 30.5 L, MCV 110.9 H, MCH 37.5 H, MCHC 33.8, RDW Std Deviation 64.6 H, RDW Coeff of Jevon 15.9 H, Plt Count 252, MPV 10.9, Immature Gran % (Auto) 0.700, Neut % (Auto) 67.8, Lymph % (Auto) 19.4, [place] % (Auto) 7.9, Eos % (Auto) 3.1, Baso % (Auto) 1.1 H, Absolute Neuts (auto) 6.3, Absolute Lymphs (auto) 1.81, Nucleated RBC % 0 10/08/20 06:05: Sodium 142, Potassium 3.7, Chloride 105, Carbon Dioxide 31.0, Anion Gap 6, BUN 4 L, Creatinine 0.51 L, Estim Creat Clear Calc 114.93, Est GFR (MDRD) Af Amer 177, Est GFR (MDRD) Non-Af 146, BUN/Creatinine Ratio 7.8 L, Glucose 104, Calcium 7.3 L, Total Bilirubin 1.50 H, AST 218 H, ALT 64 H, Alkaline Phosphatase 376 H, Total Protein 5.5 L, Albumin 2.1 L, Globulin 3.4, Albumin/Globulin Ratio 0.6 L 10/08/20 06:05: Phosphorus 2.8 Current Medications Albuterol Sulfate (Albuterol 2.5 Mg/3 Ml Vial.Neb.) 2.5 mg INHALATION Q2H PRN PRN PRN Reason: Shortness of Breath/Wheezing Dicyclomine HCl (Dicyclomine 10 Mg Capsule) 20 mg PO Q6H PRN PRN PRN Reason: abdominal discomfort Last Admin: 10/08/20 08:42 Dose: 20 mg Documented by: Famotidine (Famotidine 20 Mg Tablet) 20 mg PO BID [facility] Last Admin: 10/08/20 08:43 Dose: 20 mg Documented by: Folic Acid (Folic Acid 1 Mg Tablet) 1 mg PO DAILY@0800 [facility] Last Admin: 10/08/20 08:43 Dose: 1 mg Documented by: Gabapentin (Gabapentin 300 Mg Capsule) 300 mg PO Q8H PRN PRN PRN Reason: moderate to severe anxiety Hydroxyzine Pamoate (Hydroxyzine Radha 25 Mg Capsule) 50 mg PO Q4H PRN PRN PRN Reason: mild anxiety Loperamide HCl (Loperamide 2 Mg Capsule) 2 mg PO Q4H PRN PRN PRN Reason: LOOSE STOOLS Lorazepam (Lorazepam 2 Mg/Ml Syringe) 2 mg IV Q2H PRN PRN; Protocol PRN Reason: CIWA score > 8 but <15 Lorazepam (Lorazepam 2 Mg/Ml Syringe) 2 mg IV UD PRN; Protocol PRN Reason: CIWA score >/=15. Lorazepam (Lorazepam 1 Mg Tablet) 2 mg PO Q2H PRN PRN; Protocol PRN Reason: CIWA score > 8 but <15 Last Admin: 10/08/20 08:42 Dose: 2 mg Documented by: Lorazepam (Lorazepam 1 Mg Tablet) 2 mg PO UD PRN; Protocol PRN Reason: CIWA score >/=15. Nicotine (Nicotine 14 Mg Patch) 14 mg TD DAILY [facility] Last Admin: 10/08/20 08:43 Dose: Not Given Documented by: Nicotine Polacrilex (Nicotine Polacrilex 4 Mg Gum) 4 mg PO Q2H PRN PRN PRN Reason: Nicotine Craving Last Admin: 10/08/20 08:43 Dose: 4 mg Documented by: Ondansetron HCl (Ondansetron 8 Mg Tablet) 8 mg PO Q8H PRN PRN PRN Reason: NAUSEA Last Admin: 10/07/20 18:53 Dose: 8 mg Documented by: Phenobarbital (Phenobarbital 32.4 Mg Tablet) 97.2 mg PO Q4H [facility]; Taper Stop: 10/12/20 02:59 Last Admin: 10/08/20 08:42 Dose: 97.2 mg Documented by: Prochlorperazine Edisylate (Prochlorperazine 10 Mg/2 Ml Vial) 5 mg IV Q4H PRN PRN PRN Reason: Breakthrough nausea/vomiting Sodium Chloride (0.9% Saline Lock 10 Ml Syringe) 10 - 40 ml IV UD PRN PRN Reason: SALINE FLUSH Thiamine HCl (Thiamine Hydrochloride 100 Mg Tablet) 100 mg PO DAILYCM [facility] Last Admin: 10/08/20 08:43 Dose: 100 mg Documented by: Trazodone HCl (Trazodone 100 Mg Tablet) 100 mg PO QHS PRN PRN Reason: INSOMNIA Last Admin: 10/07/20 22:57 Dose: 100 mg Documented by: STROKE Vital Signs/Narrative: Vital Signs Temp Pulse Resp BP Pulse Ox 10/08/20 08:30 98.1 F 79 14 95/59 L 95 10/08/20 08:28 98.1 F 79 14 95/59 L 95 Addendum: Dr. Escobedo I personally examined the patient and reviewed the chart. I agree with the above. 34-year-old female has been drinking for the last 20 years and is never gone through detox, however she has had withdrawal seizures in the past. We will continue with phenobarbital as well as as needed medications. She will need to follow-up with 180 as an outpatient. She does appear stable at the moment however it is been less than 24 hours since her last drink. Potassium has improved and her LFTs are also improving. Inpatient E&M: 00742 Subs Hosp L2
[2020-10-08] MEDS: Gabapentin 300 MG Capsule PO ×2 (13:37→21:59)
[2020-10-08] MEDS: Acetaminophen 325 MG Tablet 650 MG PO (19:29)
[2020-10-09 03:01] VITALS: BP 117/83; PULSE 70; RESP 18; TEMP 36.3; O2SAT 97
[2020-10-09 03:05] VITALS: O2SAT 97
[2020-10-09 06:42] LABS: Hematocrit 31.1 % (37-47); Hemoglobin 10.6 g/dL (12.0-15.0)
[2020-10-09] MEDS: Phenobarbital 32.4 MG Tablet 64.8 MG PO ×5 (07:13→22:28)
[2020-10-09] MEDS: Folic Acid 1 MG Tablet PO (08:34)
[2020-10-09] MEDS: Famotidine 20 MG Tablet PO ×2 (08:34→20:59)
[2020-10-09] MEDS: Thiamine Hydrochloride 100 MG Tablet PO (08:34)
[2020-10-09 08:35] VITALS: BP 125/80; PULSE 111; RESP 16; TEMP 36.7; O2SAT 95
[2020-10-09] MEDS: Dicyclomine 10 MG Capsule 20 MG PO ×2 (10:34→19:06)
[2020-10-09 10:35] VITALS: PULSE 100
--- NOTE | 2020-10-09 11:23 | PCM.PN.HOSP ---
<Hank Coronel - Last Filed: 10/09/20 11:23> Patient Problems: Active and Suspected Problems History of pancreatitis (Acute) Hypokalemia (Acute) Left upper quadrant abdominal pain (Acute) Alcohol withdrawal (Acute) Reason for Visit: alcohol withdrawal Subjective: Pt tired and having a hard time focusing on the tv, at times has double vision. She states overall she feels much better today. No nausea/vomiting or abdominal pain. She has minimal upper extremity tremor. No further all over body pain. Vitals/I&O's: Vital Signs Temp Pulse Resp BP Pulse Ox 98.0 F 111 H 16 125/80 H 95 10/09/20 08:35 10/09/20 08:35 10/09/20 08:35 10/09/20 08:35 10/09/20 08:35 Oxygen Delivery Method Room Air Weight: 110 lb 3.698 oz Body Mass Index (BMI) 18.7 Intake and Output for Last 24 Hours 10/07/20 10/08/20 10/09/20 23:59 23:59 23:59 Intake Total 500 / 500 1000 / 1400 400 / 400 Output Total 100 / 100 200 / 200 Balance 400 / 400 800 / 1200 400 / 400 General: Alert, Oriented x3, Cooperative HEENT: Atraumatic, PERRLA, EOMI, Normocephalic Neck: Supple, No JVD, Negative Carotid Bruits Lungs: Clear to auscultation, Normal air movement Cardiovascular: Regular rate, No murmurs Abdomen: Bowel Sounds Present, Soft, Non Tender Extremities: No edema, Capillary Refill Less than 3 Seconds Skin: No rashes, No breakdown Musculoskeletal: No Tenderness to Palpation of Joints or Extremities Neurological: Cranial nerves II-XII grossly intact Psych/Mental Status: Normal Affect, Appropriate, Alert and oriented to time, place, person, mood and affect Microbiology Past 72 Hours 10/07/20 14:30 Stool Stool Occult Blood (CRYSTAL) - Final Laboratory Results 10/09/20 05:16: Hgb 10.6 L, Hct 31.1 L Current Medications Acetaminophen (Acetaminophen 325 Mg Tablet) 650 mg PO Q6H PRN PRN PRN Reason: Pain Score 1-10 Last Admin: 10/08/20 19:29 Dose: 650 mg Documented by: Albuterol Sulfate (Albuterol 2.5 Mg/3 Ml Vial.Neb.) 2.5 mg INHALATION Q2H PRN PRN PRN Reason: Shortness of Breath/Wheezing Dicyclomine HCl (Dicyclomine 10 Mg Capsule) 20 mg PO Q6H PRN PRN PRN Reason: abdominal discomfort Last Admin: 10/09/20 10:34 Dose: 20 mg Documented by: Famotidine (Famotidine 20 Mg Tablet) 20 mg PO BID [facility] Last Admin: 10/09/20 08:34 Dose: 20 mg Documented by: Folic Acid (Folic Acid 1 Mg Tablet) 1 mg PO DAILY@0800 [facility] Last Admin: 10/09/20 08:34 Dose: 1 mg Documented by: Gabapentin (Gabapentin 300 Mg Capsule) 300 mg PO Q8H PRN PRN PRN Reason: moderate to severe anxiety Last Admin: 10/08/20 21:59 Dose: 300 mg Documented by: Hydroxyzine Pamoate (Hydroxyzine Radha 25 Mg Capsule) 50 mg PO Q4H PRN PRN PRN Reason: mild anxiety Loperamide HCl (Loperamide 2 Mg Capsule) 2 mg PO Q4H PRN PRN PRN Reason: LOOSE STOOLS Lorazepam (Lorazepam 2 Mg/Ml Syringe) 2 mg IV Q2H PRN PRN; Protocol PRN Reason: CIWA score > 8 but <15 Lorazepam (Lorazepam 2 Mg/Ml Syringe) 2 mg IV UD PRN; Protocol PRN Reason: CIWA score >/=15. Lorazepam (Lorazepam 1 Mg Tablet) 2 mg PO Q2H PRN PRN; Protocol PRN Reason: CIWA score > 8 but <15 Last Admin: 10/08/20 18:39 Dose: 2 mg Documented by: Lorazepam (Lorazepam 1 Mg Tablet) 2 mg PO UD PRN; Protocol PRN Reason: CIWA score >/=15. Nicotine (Nicotine 14 Mg Patch) 14 mg TD DAILY [facility] Last Admin: 10/09/20 08:33 Dose: Not Given Documented by: Nicotine Polacrilex (Nicotine Polacrilex 4 Mg Gum) 4 mg PO Q2H PRN PRN PRN Reason: Nicotine Craving Last Admin: 10/08/20 22:01 Dose: 4 mg Documented by: Ondansetron HCl (Ondansetron 8 Mg Tablet) 8 mg PO Q8H PRN PRN PRN Reason: NAUSEA Last Admin: 10/07/20 18:53 Dose: 8 mg Documented by: Phenobarbital (Phenobarbital 32.4 Mg Tablet) 64.8 mg PO Q4H [facility]; Taper Stop: 10/12/20 02:59 Last Admin: 10/09/20 07:13 Dose: 64.8 mg Documented by: Prochlorperazine Edisylate (Prochlorperazine 10 Mg/2 Ml Vial) 5 mg IV Q4H PRN PRN PRN Reason: Breakthrough nausea/vomiting Sodium Chloride (0.9% Saline Lock 10 Ml Syringe) 10 - 40 ml IV UD PRN PRN Reason: SALINE FLUSH Thiamine HCl (Thiamine Hydrochloride 100 Mg Tablet) 100 mg PO DAILYCM [facility] Last Admin: 10/09/20 08:34 Dose: 100 mg Documented by: Trazodone HCl (Trazodone 100 Mg Tablet) 100 mg PO QHS PRN PRN Reason: INSOMNIA Last Admin: 10/07/20 22:57 Dose: 100 mg Documented by: STROKE Vital Signs/Narrative: Vital Signs Temp Pulse Resp BP Pulse Ox 10/09/20 08:35 98.0 F 111 H 16 125/80 H 95 Medical Necessity - Tobacco Use Smoking Status: Current every day smoker Tobacco Use: Cigarettes Assessment/Plan All Active Problems History of pancreatitis (Acute) Hypokalemia (Acute) Left upper quadrant abdominal pain (Acute) Alcohol withdrawal (Acute) 1. Alcoholism with acute withdrawal - hx withdrawal seizures. continue phenobarbital taper + Ativan PRN. continue folate/thiamine/multivitamin. -heavy drinker, 1-3 pints 80 proof vodka daily -pt denies ever going through detox 2. Abnormal LFTs - hx unclear hepatitis - repeat CMP in AM. suspect alcoholic. Repeat LFTs show improvement. Pt needs referral to GI as an outpatient. -abdominal US shows focus within head of the pancreas - see radiologist report, normal pancreatic parenchyma, possibly echogenic nodule in the pancreatic head. Also hepatic steatosis and borderline hepatomegaly. -this will likely need further workup possibly including CT or MRI, which may be obtained on an outpatient basis after the patient has adequately completed treatment for acute alcohol withdrawal 3. Chronic pancreatitis - no abd pain today. mulitple prior admissions to [facility] for acute on chronic pancreatitis.Lipase is negative. -otherwise, as per #2. 4. Nicotine abuse - 1/2 ppd smoker. Patch 5. Marijuana abuse - 1-3 hits daily. unclear quantity. C/w tox screen. 6. Pt reported black stools - initial hgb normal and Hemoccult neg. Hgb stable. DVT ppx: early ambulation DC planning: pt connected to [facility] program. This patient was seen by Hank Coronel PA-C under the supervision of Dr. Escobedo <Chalino Escobedo F - Last Filed: 10/09/20 11:54> Vitals/I&O's: Vital Signs Temp Pulse Resp BP Pulse Ox 98.0 F 111 H 16 125/80 H 95 10/09/20 08:35 10/09/20 08:35 10/09/20 08:35 10/09/20 08:35 10/09/20 08:35 Oxygen Delivery Method Room Air Weight: 110 lb 3.698 oz Body Mass Index (BMI) 18.7 Intake and Output for Last 24 Hours 10/07/20 10/08/20 10/09/20 23:59 23:59 23:59 Intake Total 500 / 500 1000 / 1400 400 / 400 Output Total 100 / 100 200 / 200 Balance 400 / 400 800 / 1200 400 / 400 Microbiology Past 72 Hours 10/07/20 14:30 Stool Stool Occult Blood (CRYSTAL) - Final Laboratory Results 10/09/20 05:16: Hgb 10.6 L, Hct 31.1 L Current Medications Acetaminophen (Acetaminophen 325 Mg Tablet) 650 mg PO Q6H PRN PRN PRN Reason: Pain Score 1-10 Last Admin: 10/08/20 19:29 Dose: 650 mg Documented by: Albuterol Sulfate (Albuterol 2.5 Mg/3 Ml Vial.Neb.) 2.5 mg INHALATION Q2H PRN PRN PRN Reason: Shortness of Breath/Wheezing Dicyclomine HCl (Dicyclomine 10 Mg Capsule) 20 mg PO Q6H PRN PRN PRN Reason: abdominal discomfort Last Admin: 10/09/20 10:34 Dose: 20 mg Documented by: Famotidine (Famotidine 20 Mg Tablet) 20 mg PO BID [facility] Last Admin: 10/09/20 08:34 Dose: 20 mg Documented by: Folic Acid (Folic Acid 1 Mg Tablet) 1 mg PO DAILY@0800 [facility] Last Admin: 10/09/20 08:34 Dose: 1 mg Documented by: Gabapentin (Gabapentin 300 Mg Capsule) 300 mg PO Q8H PRN PRN PRN Reason: moderate to severe anxiety Last Admin: 10/08/20 21:59 Dose: 300 mg Documented by: Hydroxyzine Pamoate (Hydroxyzine Radha 25 Mg Capsule) 50 mg PO Q4H PRN PRN PRN Reason: mild anxiety Loperamide HCl (Loperamide 2 Mg Capsule) 2 mg PO Q4H PRN PRN PRN Reason: LOOSE STOOLS Lorazepam (Lorazepam 2 Mg/Ml Syringe) 2 mg IV Q2H PRN PRN; Protocol PRN Reason: CIWA score > 8 but <15 Lorazepam (Lorazepam 2 Mg/Ml Syringe) 2 mg IV UD PRN; Protocol PRN Reason: CIWA score >/=15. Lorazepam (Lorazepam 1 Mg Tablet) 2 mg PO Q2H PRN PRN; Protocol PRN Reason: CIWA score > 8 but <15 Last Admin: 10/08/20 18:39 Dose: 2 mg Documented by: Lorazepam (Lorazepam 1 Mg Tablet) 2 mg PO UD PRN; Protocol PRN Reason: CIWA score >/=15. Nicotine (Nicotine 14 Mg Patch) 14 mg TD DAILY [facility] Last Admin: 10/09/20 08:33 Dose: Not Given Documented by: Nicotine Polacrilex (Nicotine Polacrilex 4 Mg Gum) 4 mg PO Q2H PRN PRN PRN Reason: Nicotine Craving Last Admin: 10/08/20 22:01 Dose: 4 mg Documented by: Ondansetron HCl (Ondansetron 8 Mg Tablet) 8 mg PO Q8H PRN PRN PRN Reason: NAUSEA Last Admin: 10/07/20 18:53 Dose: 8 mg Documented by: Phenobarbital (Phenobarbital 32.4 Mg Tablet) 64.8 mg PO Q4H [facility]; Taper Stop: 10/12/20 02:59 Last Admin: 10/09/20 11:47 Dose: 64.8 mg Documented by: Prochlorperazine Edisylate (Prochlorperazine 10 Mg/2 Ml Vial) 5 mg IV Q4H PRN PRN PRN Reason: Breakthrough nausea/vomiting Sodium Chloride (0.9% Saline Lock 10 Ml Syringe) 10 - 40 ml IV UD PRN PRN Reason: SALINE FLUSH Thiamine HCl (Thiamine Hydrochloride 100 Mg Tablet) 100 mg PO DAILYCM [facility] Last Admin: 10/09/20 08:34 Dose: 100 mg Documented by: Trazodone HCl (Trazodone 100 Mg Tablet) 100 mg PO QHS PRN PRN Reason: INSOMNIA Last Admin: 10/07/20 22:57 Dose: 100 mg Documented by: STROKE Vital Signs/Narrative: Vital Signs Temp Pulse Resp BP Pulse Ox 10/09/20 08:35 98.0 F 111 H 16 125/80 H 95 Addendum: Dr. Escobedo I personally examined the patient and reviewed the chart. I agree with the above. 34-year-old female has been drinking for the last 20 years and is never gone through detox, however she has had withdrawal seizures in the past. We will continue with phenobarbital as well as as needed medications. She will need to follow-up with 180 as an outpatient. She does appear stable at the moment however it is been less than 24 hours since her last drink. Potassium has improved and her LFTs are also improving. 10/09/2020: Feels a bit better today, however still has some restlessness. Continue with the alcohol withdrawal protocol, she will meet with 180 to discuss discharge plans. Inpatient E&M: 35942 Subs Hosp L2
[2020-10-09 14:04] VITALS: BP 122/84; PULSE 85; RESP 16; TEMP 37.3; O2SAT 100
--- NOTE | 2020-10-09 17:13 | PCS.PANDOC ---
PANDEMIC DOCUMENTATION INITIATED: Date: 10/07/2020 Time: 072
--- NOTE | 2020-10-09 17:16 | PCS.PANDOC ---
PANDEMIC DOCUMENTATION INITIATED: Date: 10/07/2020 Time: 731
[2020-10-09 20:56] VITALS: BP 116/81; PULSE 92; RESP 18; TEMP 37; O2SAT 97
[2020-10-10 03:06] VITALS: BP 104/70; PULSE 77; RESP 16; TEMP 37; O2SAT 97
[2020-10-10] MEDS: Phenobarbital 32.4 MG Tablet 64.8 MG PO ×2 (03:08→09:21)
[2020-10-10] MEDS: Thiamine Hydrochloride 100 MG Tablet PO (07:41)
[2020-10-10] MEDS: Folic Acid 1 MG Tablet PO (07:41)
[2020-10-10 09:24] VITALS: BP 100/67; PULSE 89; RESP 16; TEMP 36.7; O2SAT 98
--- NOTE | 2020-10-10 09:39 | ADDICTION ---
This insurance writer was informed by [facility] staff that patient was planning to admit into women's residential treatment upon d/c from [facility]. This insurance writer was told by PT's nurse that she was requesting to leave right now and that she no longer interested in Residential treatment and wants to d/c to home. This insurance writer spoke with PT who shared that she wants to leave right now, that she will not be admitting into Residential treatment because she needs to have access to her phone, at all times, to speak with her incarcerated boyfriend. She also demanded that this insurance writer find her nurse so I can get my stuff out. This insurance writer informed [facility] SW, CM and PT's nurse.
--- NOTE | 2020-10-10 09:42 | DCINST_ITS ---
- Discharge Diagnoses Current Active Problems: Current Active and Chronic Problems History of alcoholism (Chronic) History of pancreatitis (Acute) Alcohol abuse with intoxication (Chronic) Hypokalemia (Acute) Left upper quadrant abdominal pain (Acute) Chronic pancreatitis (Chronic) Alcohol withdrawal (Acute) Nicotine abuse (Chronic) Hepatitis (Chronic) You will use the following diet at home:: No restrictions Discharge Activity: Return to Normal Activity, May not drive while taking narcotic pain medications. Allergies/Adverse Reactions: Allergies hydrocodone Adverse Reaction (Verified 10/07/20 14:19) Nausea Medications to take at Discharge NK 10/07/20 Primary Care Physician: Care Physician,No Primary [Primary Care Provider] - Test Results: Test results from this visit will be discussed in further detail at your follow- up appointment, if applicable. Please Follow Up With: [facility] Proposed Discharge Date: 10/10/20
--- NOTE | 2020-10-10 09:44 | PCM.DC.SUM ---
Discharge Date and Diagnosis - Problem List Patient Problems: Active and Suspected Problems History of pancreatitis (Acute) Hypokalemia (Acute) Left upper quadrant abdominal pain (Acute) Alcohol withdrawal (Acute) Date of Admission: 10/07/20 Date of Discharge: 10/10/20 - Primary Discharge Diagnosis Acute Problems: Active Problems History of pancreatitis (Acute) Hypokalemia (Acute) Left upper quadrant abdominal pain (Acute) Alcohol withdrawal (Acute) - Secondary Discharge Diagnosis Chronic Problems: Chronic Problems History of alcoholism (Chronic) Alcohol abuse with intoxication (Chronic) Chronic pancreatitis (Chronic) Nicotine abuse (Chronic) Hepatitis (Chronic) Hospital Course and Treatment Summary of Care Provided: The patient is a 34 year old F with history of polysubstance abuse admitted with acute alcohol withdrawal 1. Acute alcohol withdrawal ?Admitted to regular nursing floor managed with phenobarb taper -10/10/2020; patient threatened to be discharged on the day of her discharge otherwise she was going to sign out AMA. 2. Normal LFTs ?Abdominal ultrasound obtained on 10/06/2021 demonstrated normal pancreatic parenchyma with possible echogenic nodule in the pancreatic head. Patient was informed of the results instructed to follow-up with PCP for follow-up imaging studies with either CT or MRI 2. Chronic pancreatitis ?Alcohol induced 4. Polysubstance abuse ?Including marijuana tobacco and alcohol counseled on cessation Patient Problems: Active and Suspected Problems History of pancreatitis (Acute) Hypokalemia (Acute) Left upper quadrant abdominal pain (Acute) Alcohol withdrawal (Acute) - Physical Exam Vitals/I&O's: Vital Signs Temp Pulse Resp BP Pulse Ox 98.1 F 89 16 100/67 98 10/10/20 09:24 10/10/20 09:24 10/10/20 09:24 10/10/20 09:24 10/10/20 09:24 Oxygen Delivery Method Room Air Weight: 49 kg Body Mass Index (BMI) 18.7 Intake and Output for Last 24 Hours 10/08/20 10/09/20 10/10/20 23:59 23:59 23:59 Intake Total 1000 / 1400 400 / 900 750 / 750 Output Total 200 / 200 Balance 800 / 1200 400 / 900 750 / 750 General: Alert HEENT: Atraumatic Cardiovascular: Regular rate, Regular Rhythm Neurological: Neuro grossly intact Psych/Mental Status: Normal Affect Microbiology Past 72 Hours 10/07/20 14:30 Stool Stool Occult Blood (CRYSTAL) - Final Current Medications Acetaminophen (Acetaminophen 325 Mg Tablet) 650 mg PO Q6H PRN PRN PRN Reason: Pain Score 1-10 Last Admin: 10/08/20 19:29 Dose: 650 mg Documented by: Albuterol Sulfate (Albuterol 2.5 Mg/3 Ml Vial.Neb.) 2.5 mg INHALATION Q2H PRN PRN PRN Reason: Shortness of Breath/Wheezing Dicyclomine HCl (Dicyclomine 10 Mg Capsule) 20 mg PO Q6H PRN PRN PRN Reason: abdominal discomfort Last Admin: 10/09/20 19:06 Dose: 20 mg Documented by: Famotidine (Famotidine 20 Mg Tablet) 20 mg PO BID [facility] Last Admin: 10/10/20 09:22 Dose: Not Given Documented by: Folic Acid (Folic Acid 1 Mg Tablet) 1 mg PO DAILY@0800 [facility] Last Admin: 10/10/20 07:41 Dose: 1 mg Documented by: Gabapentin (Gabapentin 300 Mg Capsule) 300 mg PO Q8H PRN PRN PRN Reason: moderate to severe anxiety Last Admin: 10/08/20 21:59 Dose: 300 mg Documented by: Hydroxyzine Pamoate (Hydroxyzine Radha 25 Mg Capsule) 50 mg PO Q4H PRN PRN PRN Reason: mild anxiety Loperamide HCl (Loperamide 2 Mg Capsule) 2 mg PO Q4H PRN PRN PRN Reason: LOOSE STOOLS Lorazepam (Lorazepam 2 Mg/Ml Syringe) 2 mg IV Q2H PRN PRN; Protocol PRN Reason: CIWA score > 8 but <15 Lorazepam (Lorazepam 2 Mg/Ml Syringe) 2 mg IV UD PRN; Protocol PRN Reason: CIWA score >/=15. Lorazepam (Lorazepam 1 Mg Tablet) 2 mg PO Q2H PRN PRN; Protocol PRN Reason: CIWA score > 8 but <15 Last Admin: 10/08/20 18:39 Dose: 2 mg Documented by: Lorazepam (Lorazepam 1 Mg Tablet) 2 mg PO UD PRN; Protocol PRN Reason: CIWA score >/=15. Nicotine (Nicotine 14 Mg Patch) 14 mg TD DAILY [facility] Last Admin: 10/10/20 09:22 Dose: Not Given Documented by: Nicotine Polacrilex (Nicotine Polacrilex 4 Mg Gum) 4 mg PO Q2H PRN PRN PRN Reason: Nicotine Craving Last Admin: 10/10/20 07:41 Dose: 4 mg Documented by: Ondansetron HCl (Ondansetron 8 Mg Tablet) 8 mg PO Q8H PRN PRN PRN Reason: NAUSEA Last Admin: 10/07/20 18:53 Dose: 8 mg Documented by: Phenobarbital (Phenobarbital 32.4 Mg Tablet) 64.8 mg PO Q6H [facility]; Taper Stop: 10/12/20 02:59 Last Admin: 10/10/20 09:21 Dose: 64.8 mg Documented by: Prochlorperazine Edisylate (Prochlorperazine 10 Mg/2 Ml Vial) 5 mg IV Q4H PRN PRN PRN Reason: Breakthrough nausea/vomiting Sodium Chloride (0.9% Saline Lock 10 Ml Syringe) 10 - 40 ml IV UD PRN PRN Reason: SALINE FLUSH Thiamine HCl (Thiamine Hydrochloride 100 Mg Tablet) 100 mg PO DAILYCM ORAL Last Admin: 10/10/20 07:41 Dose: 100 mg Documented by: Trazodone HCl (Trazodone 100 Mg Tablet) 100 mg PO QHS PRN PRN Reason: INSOMNIA Last Admin: 10/07/20 22:57 Dose: 100 mg Documented by: Discharge Diet: No Restrictions Discharge Activity: Return to Normal Activity, May not drive while taking narcotic pain medications. Home Medications: Medications to take at Discharge NK 10/07/20 Primary Care Physician: Care Physician,No Primary [Primary Care Provider] - Please Follow Up With: [facility] Disposition: Home Minutes spent on discharge:: 35 Medical Necessity - Tobacco Use Smoking Status: Current every day smoker Tobacco Use: Cigarettes Meaningful Use Info Meaningful Use Diagnoses (Choose all that apply): None applicable Inpatient E&M: 94442 Disch Hosp
== END 2020-10-10 11:57 | disposition home or self-care (01) | DRG 775 ==
LOC: ED 16:21 → MS3 17:42
PROVIDERS: Physician Assistant; Admitting Provider Internal Medicine; Emergency Provider Emergency Medicine; Visit Provider Internal Medicine
DX: F10.239 Alcohol dependence with withdrawal, unspecified (principal); F10.229 Alcohol dependence with intoxication, unspecified; F12.10 Cannabis abuse, uncomplicated; Y90.6 Blood alcohol level of 120-199 mg/100 ml; E43 Unspecified severe protein-calorie malnutrition; K86.1 Other chronic pancreatitis; K70.9 Alcoholic liver disease, unspecified; E87.6 Hypokalemia; F17.210 Nicotine dependence, cigarettes, uncomplicated; Z68.1 Body mass index [BMI] 19.9 or less, adult
CPT/HCPCS: 36415; 76705; 80053; 80307; 82077; 82248; 82274; 83690; 83735; 84100; 85014; 85018; 85025; 85610; 99251; 99284; 99406; J7030; A4216; G0463